=== PATIENT | female | born 1975 | race Two or more races ===

== ENCOUNTER 2016-05-15 01:30 | Emergency (ER) | payer OTHER ==
[2016-05-15 03:28] LABS: BASO # 0.1 K/mm3 (0.0-0.2); EOS # 0.3 (0.0-0.5); EOS % 3.6 % (0.9-2.9); HEMATOCRIT 39.4 % (37.0-47.0); HEMOGLOBIN 13.7 gm/l (12.0-16.0); IMM NEUT% 0.4 % (0-1); LYMPH # 3.2 (1.0-4.8); LYMPH % 39.7 % (15-45); MEAN CELL VOLUME 85.3 fl (81.0-99.0); MEAN CORPUSCULAR HEMOGLOBIN 29.7 pg (27.0-31.0); MEAN CORPUSCULAR HGB CONC 34.8 g/dl (33.0-37.0); MEAN PLATELET VOLUME 10.1 fl (7.4-10.4); MONO # 0.5 (0.0-0.8); MONO % 6.4 % (4-12); NEUT % 48.9 % (43-75); PLATELET COUNT 209 K/mm3 (130-400); RED CELL DISTRIBUTION WIDTH 12.5 % (11.5-14.5)
[2016-05-15 03:46] LABS: TROPONIN I < 0.01 ng/ml (0.0-0.06)
[2016-05-15 03:53] LABS: ALB/GLOB RATIO 1.1 (>1.0); ALBUMIN 4.1 gm/dL (3.5-5.7); CALCIUM 9.3 mg/dL (8.6-10.3)
[2016-05-15 03:54] LABS: THYROID STIMULATING HORMONE 19.51 uIU/ml (0.34-5.60)
[2016-05-15] MEDS ORDERED: ASPIRIN CHEWTAB 81 MG TABLET ONE (04:20)
[2016-05-15] MEDS ORDERED: KETOROLAC TROMETHAMINE 30 MG/ML 1 ML VIAL ONE (04:21)
[2016-05-15 04:38] LABS: CKMB ISOENZYME 4.4 ng/ml (0.6-6.3)
[2016-05-15 04:51] LABS: FREE T4 0.5 ng/dL (0.58-1.64)
--- NOTE | 2016-05-15 07:46 | RAD ---
Name: SILVINA TURCIOS Exam: Two-view chest Comparison: None Clinical history: Chest pain and pressure Findings: 2 views of the chest are submitted. The heart mediastinum and hilar structures are within normal limits. There is no failure, infiltrate, pleural effusion or pneumothorax. Regional skeleton is within normal limits. The gallbladder is surgically absent. Impression: No acute cardiopulmonary process
== END 2016-05-15 05:33 | disposition home or self-care (01) ==
LOC: ED 01:30
DX: R07.9 Chest pain, unspecified (principal); N64.4 Mastodynia
CPT/HCPCS: 85379; 85025; 82550; 82553; 80053; 84439; 84443; 84484; 71020; 99284 ×2; 96374; 93005; A9270; J1885